=== PATIENT | female | born 1985 | race Caucasian/White ===

== ENCOUNTER → 2018-07-26 | Outpatient (CLI) | payer OTHER | LOC: FIMAGING 15:42 | PROVIDERS: ATTEND Physician Assistant Medical | DX: R93.89 Abnormal findings on diagnostic imaging of other specified body structures (principal) ==

== ENCOUNTER 2018-10-24 13:16 | Emergency (ER) | payer OTHER ==
[2018-10-24] MEDS ORDERED: ONDANSETRON 4 MG/2 ML VIAL IVP ONE (13:53)
[2018-10-24] MEDS ORDERED: NS 1,000 ML IV ONE (13:53)
[2018-10-24] MEDS ORDERED: KETOROLAC 30 MG/1 ML SDV IVP ONE (13:53)
--- NOTE | 2018-10-24 13:53 | EDPHY ---
H & P Time Seen by Provider: 10/24/18 13:31 HPI/ROS: CHIEF COMPLAINT: Abdominal pain HISTORY OF PRESENT ILLNESS: Patient is a 33-year-old female with a history of cholecystectomy 5 years ago who presents to the emergency department with right upper quadrant sharp abdominal pain. She also has generalized abdominal cramping. Her symptoms started 2 days ago. Yesterday they were fairly stable but today they are slightly worse. She has had nausea and 2 episodes of vomiting today. She has also had multiple episodes of diarrhea. Patient denies fever. She has no dysuria frequency. The patient states that when she had her gallbladder taken out 5 years ago she had complication with a fluid collection. This required drainage. This presentation feels similar REVIEW OF SYSTEMS: 10 systems were reveiwed and are negative with the exception of the elements mentioned in the history of present illness. Past Medical/Surgical History: Includes ovarian cyst Past surgical history: Cholecystectomy, tubal ligation Social history: Patient does not smoke Smoking Status: Never smoked Physical Exam: Vitals noted GENERAL: Well-appearing, in no acute distress, alert. HEENT: Eyes normal to inspection, normal pharynx, no signs of dehydration. NECK: Normal, supple. RESPIRATORY: Clear to auscultation bilaterally, no rales, rhonchi or wheezing. CVS: Regular rate and rhythm, no rubs, murmurs, or gallops. ABDOMEN: Soft, mild right upper quadrant tenderness to palpation with no rebound or guarding, nondistended, no organomegaly. BACK: Normal to inspection, no CVA tenderness. SKIN: Normal color, no rash, warm, dry. No pallor. EXTREMITIES: No pedal edema, no calf tenderness, no Homans sign or cords, no joint swelling. NEURO/PSYCH: Alert and oriented, normal mood and affect, normal motor sensory exam. Constitutional: Initial Vital Signs Temperature (C) 36.6 C 10/24/18 13:22 Heart Rate 58 L 10/24/18 13:22 Respiratory Rate 16 10/24/18 13:22 Blood Pressure 131/71 H 10/24/18 13:22 O2 Sat (%) 99 10/24/18 13:22 O2 Delivery Mode Room Air Allergies/Adverse Reactions: No Known Allergies Allergy (Verified 10/24/18 13:22) Home Medications: Medication Instructions Recorded Ondansetron Odt [Zofran Odt 4 mg 4 mg PO Q4PRN PRN #7 tab 10/24/18 (*)] Medical Decision Making - Diagnostics Imaging Results: Imaging Impressions Abdomen CT 10/24/18 13:54 Impression: 1. No localized acute intra-abdominal inflammatory process. No bowel obstruction or adynamic ileus. 2. Small old residual partially calcified fluid collection in the margin of the liver adjacent the cholecystectomy bed. No acute inflammatory features. Findings discussed with Emergency Department physician, Carmelita Morales on , 15:23. ED Course/Re-evaluation: In the emergency department I discussed possible etiologies with the patient. I answered all her questions. IV was placed. Laboratory studies were obtained. Due the patient's abdominal pain, previous surgery with complication a CT of the abdomen pelvis was ordered. The CBC, chemistry, LFTs and lipase are all normal. CT: Please refer the dictated report. No acute disease noted. I discussed the results with the patient. I answered all her questions. There was a delay in the patient obtaining her Toradol and fluid. Toradol in fluid were given. On recheck the patient was doing well. She did not have an acute abdomen. She is given warnings prior to leaving. She will return with worsening symptoms. Differential Diagnosis: My differential includes but is not limited to small-bowel obstruction, perforation, retained stone, cholangitis, abscess, peptic ulcer disease, pneumothorax - Data Points Laboratory Results: Laboratory Results 10/24/18 13:46 10/24/18 13:46 10/24/18 10/24/18 10/24/18 13:46 13:46 13:46 WBC 9.01 10^3/uL 10^3/uL (3.80-9.50) RBC 4.54 10^6/uL 10^6/uL (4.18-5.33) Hgb 14.3 g/dL g/dL (12.6-16.3) Hct 42.3 % % (38.0-47.0) MCV 93.2 fL fL (81.5-99.8) MCH 31.5 pg pg (27.9-34.1) MCHC 33.8 g/dL g/dL (32.4-36.7) RDW 12.1 % % (11.5-15.2) Plt Count 309 10^3/uL 10^3/uL (150-400) MPV 9.5 fL fL (8.7-11.7) Neut % (Auto) 65.8 % % (39.3-74.2) Lymph % (Auto) 25.9 % % (15.0-45.0) Isabella % (Auto) 7.1 % % (4.5-13.0) Eos % (Auto) 0.6 % % (0.6-7.6) Baso % (Auto) 0.4 % % (0.3-1.7) Nucleat RBC Rel Count 0.0 % % (0.0-0.2) Absolute Neuts (auto) 5.93 10^3/uL 10^3/uL (1.70-6.50) Absolute Lymphs (auto) 2.33 10^3/uL 10^3/uL (1.00-3.00) Absolute Monos (auto) 0.64 10^3/uL 10^3/uL (0.30-0.80) Absolute Eos (auto) 0.05 10^3/uL 10^3/uL (0.03-0.40) Absolute Basos (auto) 0.04 10^3/uL 10^3/uL (0.02-0.10) Absolute Nucleated RBC 0.00 10^3/uL 10^3/uL (0-0.01) Immature Gran % 0.2 % % (0.0-1.1) Immature Gran # 0.02 10^3/uL 10^3/uL (0.00-0.10) Sodium 136 mEq/L mEq/L (135-145) Potassium 3.9 mEq/L mEq/L (3.5-5.2) Chloride 105 mEq/L mEq/L (97-110) Carbon Dioxide 20 mEq/l L mEq/l (22-31) Anion Gap 11 mEq/L mEq/L (6-14) BUN 9 mg/dL mg/dL (7-23) Creatinine 0.6 mg/dL mg/dL (0.6-1.0) Estimated GFR > 60 Glucose 87 mg/dL mg/dL (70-100) Calcium 9.0 mg/dL mg/dL (8.5-10.4) Total Bilirubin 0.7 mg/dL mg/dL (0.1-1.4) Conjugated Bilirubin 0.1 mg/dL mg/dL (0.0-0.5) Unconjugated Bilirubin 0.6 mg/dL mg/dL (0.0-1.1) AST 21 IU/L IU/L (14-46) ALT 18 IU/L IU/L (9-52) Alkaline Phosphatase 69 IU/L IU/L (38-126) Total Protein 6.6 g/dL g/dL (6.3-8.2) Albumin 3.7 g/dL g/dL (3.5-5.0) Lipase 67 IU/L IU/L (23-300) Beta HCG, Qual NEGATIVE Medications Given: Discontinued Medications Sodium Chloride (Ns) 1,000 mls @ 0 mls/hr IV EDNOW ONE; Wide Open PRN Reason: Protocol Stop: 10/24/18 13:54 Last Admin: 10/24/18 15:44 Dose: 1,000 mls Ketorolac Tromethamine (Toradol) 30 mg IVP EDNOW ONE Stop: 10/24/18 13:54 Last Admin: 10/24/18 15:44 Dose: 30 mg Ondansetron HCl (Zofran) 4 mg IVP EDNOW ONE Stop: 10/24/18 13:54 Last Admin: 10/24/18 15:45 Dose: 4 mg Departure - Departure Disposition: Home, Routine, Self-Care Clinical Impression: Abdominal pain Qualifiers: Abdominal location: right upper quadrant Qualified Code(s): R10.11 - Right upper quadrant pain Condition: Fair Instructions: Abdominal Pain (ED) Additional Instructions: Return with increasing pain, fever, repeat vomiting or any other concerns. Referrals: Dannielle Brady DO [Doctor of Osteopathy] - 5-7 days, call for appt. Prescriptions: Ondansetron Odt [Zofran Odt 4 mg (*)] 4 mg PO Q4PRN PRN #7 tab PRN Reason: For Nausea & Vomiting
[2018-10-24 14:14] LABS: PLATELET COUNT 309 10^3/uL (150-400)
[2018-10-24] MEDS ORDERED: IOPAMIDOL (ISOVUE-300) 100 ML BTL ONE (14:49)
[2018-10-24 16:22] VITALS: BP 99/60
== END 2018-10-24 16:21 | disposition home or self-care (01) ==
DX: R10.11 Right upper quadrant pain (principal); R19.7 Diarrhea, unspecified; Z90.49 Acquired absence of other specified parts of digestive tract; E86.9 Volume depletion, unspecified
CPT/HCPCS: 96374; J1885; J2405; Q9967